=== PATIENT | male | born 1960 | race Caucasian/White ===

== ENCOUNTER 2022-03-03 07:13 | Emergency (ER) | payer SELFPAY ==
[2022-03-03] MEDS ORDERED: Boostrix 0.5 ML (Tdap) VIAL (>/=7 yrs of age) ONE (07:24)
[2022-03-03] MEDS ORDERED: CEFAZOLIN 1 GM VIAL ONE (07:24)
[2022-03-03] MEDS ORDERED: Morphine 4 MG/ML VIAL ONE (07:34)
[2022-03-03] MEDS ORDERED: Ondansetron PF 4 MG/2 ML Vial ONE (07:34)
[2022-03-03] MEDS ORDERED: Lidocaine 1% MPF 2 ML VIAL ONE ×2 (07:39→07:48)
[2022-03-03] MEDS ORDERED: Lidocaine 1% PF 5 ML VIAL ONE (07:47)
[2022-03-03] MEDS ORDERED: Bacitracin 1 PK ONE (08:12)
[2022-03-03] MEDS ORDERED: traMADol HCl 50 MG TAB ONE (08:57)
== END 2022-03-03 09:09 | disposition home or self-care (01) ==
LOC: ERS 07:13
DX: S61.412A Laceration without foreign body of left hand, initial encounter (principal); Z23 Encounter for immunization; W34.00XA Accidental discharge from unspecified firearms or gun, initial encounter
CPT/HCPCS: 12032; 90471; 90715; 96374; 96375; J0690; J2270; J2405